=== PATIENT | male | born 1995 | race Caucasian/White ===

== ENCOUNTER → 2021-02-02 15:14 | Outpatient (CLI) | payer OTHER, SELFPAY ==
--- NOTE | ~2021-02-02 | US_ITS ---
EXAMINATION: US soft tissue groin RT EXAM DATE: 02/02/2021 15:35 INDICATION: R10.31 - Right lower quadrant pain TECHNIQUE: Multiple grayscale and Doppler images of the right inguinal region. were obtained (by a te chnologist who performed the scan) and subsequently reviewed. There is no prior study for comparison . FINDINGS: Scanning in the right inguinal region, area of pain demonstrates no evidence of an inguinal hernia. T here are several small lymph nodes, well within normal size limits and otherwise morphologically norm al. Subcutaneous fat, musculature unremarkable. IMPRESSION: 1. Unremarkable ultrasound exam. Reviewed, dictated and finalized at location B.
== END ==
PROVIDERS: PCP Nurse Practitioner Family; Visit Provider Nurse Practitioner Family
DX: N50.811 Right testicular pain (principal)
CPT/HCPCS: 76882

== ENCOUNTER → 2021-02-28 10:38 | Outpatient (CLI) | payer OTHER, SELFPAY ==
--- NOTE | ~2021-02-28 | US_ITS ---
EXAMINATION: US scrotum doppler DATE: 02/28/2021 10:58 INDICATION: Right testicular pain TECHNIQUE: Testicular sonogram utilizing grayscale and Doppler COMPARISON: None. FINDINGS: The right testis measures 5.0 x 2.0 x 3.2 cm. The left testis measures 4.9 x 2.2 x 3.0 cm. Symmetric normal grayscale appearance to both testes. There is normal vascular flow to both testes. There are a couple small anechoic epididymal cysts measuring 6 mm and 3 mm in maximal diameters. The right epidi dymis is otherwise normal with normal vascular flow. The left epididymis is normal with normal vascul ar flow. There is no varicocele or hydrocele. IMPRESSION: 1. A couple small right epididymal head cysts. Otherwise normal testicular ultrasound. Reviewed, dictated and finalized at location A. IMPRESSION: 1. A couple small right epididymal head cysts. Otherwise normal testicular ult rasound.
== END ==
PROVIDERS: PCP Nurse Practitioner Family; Visit Provider Nurse Practitioner Family
DX: N50.811 Right testicular pain (principal)
CPT/HCPCS: 76870; 93976

== ENCOUNTER 2021-09-08 10:20 | Outpatient (CLI) | payer OTHER, SELFPAY ==
[2021-09-08 19:03] LABS: Toxigenic C. Diff NEGATIVE (NEGATIVE)
== END 2021-09-08 10:21 | disposition home or self-care (01) ==
LOC: ANHLAB 10:23
PROVIDERS: PCP Nurse Practitioner Family; Visit Provider Nurse Practitioner
DX: R19.7 Diarrhea, unspecified (principal)
CPT/HCPCS: 87045; 87177; 87209; 87427; 87493